=== PATIENT | female | born 1955 | race Caucasian/White ===

== ENCOUNTER 2019-02-05 08:36 | Emergency (ER) | payer BC, OTHER ==
[2019-02-05 08:50] VITALS: BP 175/98
--- NOTE | 2019-02-05 09:22 | UC ---
Laceration HPI - HPI Summary HPI Summary: Patient presents to urgent care to get a tetanus shot. Patient was cutting apples yesterday with a knife. Patient sustained a small laceration to her left thumb. Patient states she washed underwater preventative and has not bled since. Patient is right-hand dominant. Patient is not immunocompromised. Patient denies lip discomfort. No active bleeding. Patient states her last tetanus was given 20 years ago. Patient's medications review this visit. - History Of Current Complaint Chief Complaint: UCSkin Stated Complaint: LAC TO THUMB Time Seen by Provider: 02/05/19 09:01 Hx Obtained From: Patient Pain Intensity: 2 - Allergies/Home Medications Allergies/Adverse Reactions: Allergies Allergy/AdvReac Type Severity Reaction Status Date / Time amoxicillin Allergy rash Verified 02/05/19 08:50 swelling sulfamethoxazole Allergy Swelling Verified 02/05/19 08:51 [From ] trimethoprim [From ] Allergy Swelling Verified 02/05/19 08:51 Home Medications: Home Medications NK [No Home Medications Reported] 02/05/19 [History Confirmed 02/05/19] PMH/Surg Hx/FS Hx/Imm Hx Previously Healthy: Yes - Surgical History Surgical History: Yes Surgery Procedure, Year, and Place: ganglions - Family History Known Family History: Positive: Non-Contributory - Social History Lives: With Family Alcohol Use: None Substance Use Type: None Smoking Status (MU): Never Smoked Tobacco - Immunization History Most Recent Tetanus Shot: needs one Review of Systems All Other Systems Reviewed And Are Negative: Yes Skin: Positive: Other - Laceration left thumb Physical Exam - Summary Physical Exam Summary: Vital Signs Reviewed: Yes A+Ox3, no distress Eyes: Conjunctiva Clear ENT: Hearing grossly normal neck: supple Respiratory: Positive: No respiratory distress, No accessory muscle use Cardiovascular: skin color reflect adequate perfusion, CBT < 2 sec distal tip of finger Musculoskeletal Exam: + flex/ext MCP, IP without pain or weakness Neurological: Positive: Alert, ambulatory without difficulty Psychological: Positive: Normal Response To examiner Skin: Positive: no rash, no ecchymosis pt with 0.5cm laceration tip left thumb - no nail involvement, no active bleeding, no pain Triage Information Reviewed: Yes Vital Signs: Initial Vital Signs Temp 98 F 02/05/19 08:46 Pulse 63 02/05/19 08:46 Resp 16 02/05/19 08:46 BP 175/98 11/04/19 08:46 Pulse Ox 100 02/05/19 08:46 Laceration Course/Dx - Course/Dx Course Of Treatment: Patient presents to urgent care requesting a tetanus booster. Patient states she sustained a laceration to her left thumb yesterday. Patient cleaned and covered. No active bleeding. Not optimized. No anticoagulants. Patient states her last tetanus was greater than 10 years ago. Patient is not immunocompromised. On exam vital signs are stable. Patient with a small nonsuturable wound on her left thumb. Will give tetanus booster. Will discuss with patient discomfort. Motrin Tylenol. Reviewed with patient wound care signs and symptoms of infection. Patient states understanding and agreement with plan. Patient without a history of reactions to vaccinations elevated BP history of same recommend f/u with pcp - Diagnosis Provider Diagnosis: Need for tetanus booster, Finger wound, simple, open Discharge ED - Sign-Out/Discharge Documenting (check all that apply): Patient Departure All imaging exams completed and their final reports reviewed: No Studies - Discharge Plan Condition: Stable Disposition: HOME Patient Education Materials: Diphtheria/Acellular Pertussis/Tetanus Booster Vaccine (By injection), Acute Wound Care (ED) Referrals: Katia FRANKLIN,Daljit Stack [Primary Care Provider] - Additional Instructions: Keep wound clean and dry -Okay to wash with warm, soap water. Pat dry and cover -monitor for signs of infection - reddness, red streaking, increased pain, odor - if you have any concerns, you should be re-evaluated -you were given a tetanus vaccination today - your arm will likely be sore tomorrow - this is normal -Okay to alternate ibuprofen (Advil, Motrin) and Tylenol (acetaminophen) every 3 hours for pain or fever. Take with food. Do NOT take for more than 4-5 days. Contact your doctor or return with questions or concerns - Billing Disposition and Condition Condition: STABLE Disposition: Home
[2019-02-05] MEDS ORDERED: Tetan/Diph/Pertus SYR(Tdap)* 0.5 ML SYR(BOOSTRIX) use SYR contains LATEX IM ONE (09:27)
== END 2019-02-05 09:40 | disposition home or self-care (01) ==
LOC: UCEAST 08:36
DX: S61.002A Unspecified open wound of left thumb without damage to nail, initial encounter (principal); Z23 Encounter for immunization; R03.0 Elevated blood-pressure reading, without diagnosis of hypertension; Z88.0 Allergy status to penicillin; Z88.2 Allergy status to sulfonamides; Z88.1 Allergy status to other antibiotic agents; W26.0XXA Contact with knife, initial encounter; Y92.9 Unspecified place or not applicable
CPT/HCPCS: 90471; 90715; 99202; G0463